=== PATIENT | female | born 1965 | race American Indian/Alaskan Native ===

== ENCOUNTER 2017-07-09 06:46 | Day surgery (SDC) | payer MEDICARE ==
[2017-07-09 07:41] VITALS: RESP 20
[2017-07-09] MEDS ORDERED: MethylPREDNISolone Depo 40 mg/ml Inj ONE ×2 (07:43→09:11)
[2017-07-09] MEDS ORDERED: Iohexol 240 (50 ml) ONE (07:43)
[2017-07-09] MEDS ORDERED: Lidocaine 1% Inj (20ml) ONE ×2 (07:43→07:44)
[2017-07-09] MEDS ORDERED: Bupivacaine HCl 0.25% PF (10 ml) Inj ONE (07:44)
[2017-07-09] MEDS ORDERED: Lidocaine Hydrochloride 5 ML INJ ONE (08:41)
[2017-07-09] MEDS ORDERED: Midazolam 2 MG/2 ML VIAL ONE (08:43)
[2017-07-09] MEDS ORDERED: Propofol 10 mg/ml Inj (20 ML) ONE (08:48)
[2017-07-09] MEDS ORDERED: Lactated Ringer's 1,000 ML IV ONE (08:59)
[2017-07-09 12:03] VITALS: O2SAT 100
[2017-07-09 12:05] VITALS: BP 143/69; PULSE 86; TEMP 97.2
--- NOTE | 2017-07-10 10:46 | RAD ---
PROCEDURE: Intraoperative Fluoroscopy. HISTORY: LUMBAR RADICULOPATHY FINDINGS: Fluoroscopic assistance was provided for L4-5 nerve block. Please
== END 2017-07-09 10:10 | disposition home or self-care (01) ==
LOC: C.SDS 06:46
PROVIDERS: ATTEND Anesthesiology Pain Medicine
DX: M51.26 Other intervertebral disc displacement, lumbar region (principal)
CPT/HCPCS: 62322; 76000; 82948; J1030; J2704; J7120; Q9966